=== PATIENT | male | born 2005 | race Caucasian/White ===

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

== ENCOUNTER 2024-01-24 16:20 | Emergency (ER) | payer BC, SELFPAY ==
[2024-01-24] MEDS ORDERED: IBUPROFEN 400 MG TAB ONE (16:28)
[2024-01-24] MEDS ORDERED: ACETAMINOPHEN 500 MG TAB ONE (16:28)
--- NOTE | 2024-01-24 17:12 | RAD REPORT ---
Exam:Hand Left 3 View CLINICAL HISTORY: Left hand pain FINDINGS: Nondisplaced fracture mid aspect fifth metacarpal. No dislocation
--- NOTE | 2024-01-24 17:35 | ER ---
Nurse's Notes [facility] Name: Harshal Means Age: 18 yrs Sex: Male : 2005 Arrival Date: 01/24/2024 Time: 16:20 Bed 8 Private MD: Diagnosis: Nondisplaced fracture of shaft of fifth metacarpal bone, left hand, initial encounter for closed fracture Presentation: 01/23 16:22 Chief complaint: Patient states: Punched a wall 3 days ago. L hand pain and swelling ll1 since. Abrasion L elbow, no pain there though. Coronavirus screen: Client denies travel out of the [place] in the last 14 days. At this time, the client does not indicate any symptoms associated with coronavirus-19. Ebola Screen: Patient denies travel to an Ebola-affected area in the 21 days before illness onset. Initial Sepsis Screen: Does the patient meet any 2 criteria? No. Patient's initial sepsis screen is negative. Does the patient have a suspected source of infection? No. Patient's initial sepsis screen is negative. Risk Assessment: Do you want to hurt yourself or someone else? Patient reports no desire to harm self or others. Onset of symptoms was January 22, 2024. 16:22 Method Of Arrival: Ambulatory 1 16:22 [facility] 16:22 Acuity: CEE 4 ll1 Triage Assessment: 16:25 General: Appears uncomfortable, Behavior is calm, cooperative, appropriate for age. ll1 Pain: Complains of pain in left hand Quality of pain is described as aching. Musculoskeletal: Circulation, motion, and sensation intact. Capillary refill < 3 seconds, in left fingers. Swelling present in left hand Reports pain in left hand. Injury Description: Bruise. Historical: - Allergies: 16:22 No Known Allergies; ll1 - PMHx: 16:22 None; ll1 - PSHx: 16:22 femur FX repair; ll1 - Immunization history:: Adult Immunizations up to date. - Infectious Disease History:: Denies. - Social history:: Smoking status: Patient reports the use of cigarette tobacco products, denies chronic smoking, but will smoke occasionally, Reported history of juuling and/or vaping. Screenin:34 [facility] ED Fall Risk Assessment (Adult) History of falling in the last 3 months, ll1 including since admission No falls in past 3 months (0 pts) Confusion or Disorientation No (0 pts) Intoxicated or Sedated No (0 pts) Impaired Gait No (0 pts) Mobility Assist Device Used No (0 pt) Altered Elimination No (0 pt) Score/Fall Risk Level 0 - 2 = Low Risk Maintained a safe environment, Hourly rounding (assess needs \T\ fall precautionary measures) done. Abuse screen: Denies threats or abuse. Nutritional screening: No deficits noted. Tuberculosis screening: No symptoms or risk factors identified. Assessment: 16:34 Reassessment: No changes from previously documented assessment. Patient and/or family ll1 updated on plan of care and expected duration. Pain level reassessed. Patient is alert, oriented x 3, equal unlabored respirations, skin warm/dry/pink. 17:32 Musculoskeletal: Circulation, motion, and sensation intact. Capillary refill < 3 ll1 seconds, in left fingers. 17:43 Reassessment: No changes from previously documented assessment. Patient and/or family ll1 updated on plan of care and expected duration. Pain level reassessed. Patient is alert, oriented x 3, equal unlabored respirations, skin warm/dry/pink. Vital Signs: 16:22 BP 140 / 96; Pulse 72; Resp 16; Pulse Ox 100% ; Weight 56.7 kg; Height 5 ft. 5 in. ; ll1 Pain 10/10; 16:34 Temp 98(TE); ll1 17:42 BP 150 / 73; Pulse 86; Resp 16; Pulse Ox 99% ; Pain 6/10; ll1 16:22 Body Mass Index 20.80 (56.70 kg, 165.1 cm) - Percentile 20.6 % ll1 16:22 Pain Scale: Adult ll1 17:42 Pain Scale: Adult ll1 ED Course: 16:21 Patient arrived in ED. ll1 16:22 Andrew Fall FNP-C [facility] 16:22 Rajesh Perry MD is Attending Physician. dr5 16:22 Arm band placed on Patient placed in an exam room, on a stretcher. ll1 16:25 Triage completed. ll1 16:26 Kristina Valdes RN is Primary Nurse. ll1 16:35 Patient has correct armband on for positive identification. Provided Education on: ER ll1 procedures and process. 16:35 No provider procedures requiring assistance completed. Patient did not have IV access ll1 during this emergency room visit. 17:06 Hand Left 3 View XRAY In Process Unspecified. EDMS 17:31 Orthoglass splint: Ulnar gutter/Boxer splint applied on left forearm. ll1 Administered Medications: 16:34 Drug: Ibuprofen PO 800 mg PO once {Note: pain 10/10.} Route: PO; ll1 17:31 Follow up: Response: No adverse reaction; Pain is decreased ll1 16:34 Drug: Acetaminophen PO 1000 mg PO once Route: PO; ll1 17:31 Follow up: Response: No adverse reaction; Pain is decreased ll1 Medication: 16:35 VIS not applicable for this client. ll1 Outcome: 17:34 Discharge ordered by . dr5 17:43 Discharged to Law Enforcement ll1 17:43 Condition: stable 17:43 Discharge instructions given to patient, police, Instructed on discharge instructions, follow up and referral plans. Demonstrated understanding of instructions, follow-up care, splint care, 17:44 Patient left the ED. ll1 Signatures: Dispatcher [employer] Kristina Street, RN RN ll1 Andrew Fall, PATENT CHEMIST-C PATENT CHEMIST-Cdr5
--- NOTE | 2024-01-24 17:35 | EDPHYS ---
Physician Documentation [facility] Name: Harshal Means Age: 18 yrs Sex: Male : 2005 Arrival Date: 01/24/2024 Time: 16:20 Bed 8 Private MD: ED Physician Rajesh Perry HPI: 01/23 17:03 This 18 yrs old Male presents to ER via Law Enforcement with complaints of dr5 Hand Injury. 17:03 The patient or guardian reports deformity, injury. The complaints affect the left hand dr5 diffusely, dorsum of left hand. Onset: The symptoms/episode began/occurred 3 day(s) ago. Patient is a 18-year-old male with no past medical history coming in with left hand pain, swelling that occurred after punching a wall 3 days ago. Patient states that he pulled on his hand after the injury that improved his pain. Patient denies numbness or tingling to hand. Patient reports that the pain is located in his left fifth metacarpal and radiates to the left wrist. Historical: - Allergies: 16:22 No Known Allergies; ll1 - PMHx: 16:22 None; ll1 - PSHx: 16:22 femur FX repair; ll1 - Immunization history:: Adult Immunizations up to date. - Infectious Disease History:: Denies. - Social history:: Smoking status: Patient reports the use of cigarette tobacco products, denies chronic smoking, but will smoke occasionally, Reported history of juuling and/or vaping. ROS: 17:03 Constitutional: as per hpi dr5 Exam: 17:03 Constitutional: This is a well developed, well nourished patient who is awake, alert, dr5 and in no acute distress. Head/Face: Normocephalic, atraumatic. Eyes: Pupils equal round and reactive to light, extra-ocular motions intact. Lids and lashes normal. Conjunctiva and sclera are non-icteric and not injected. Cornea within normal limits. Periorbital areas with no swelling, redness, or edema. Neck: Trachea midline, no thyromegaly or masses palpated, and no cervical lymphadenopathy. Supple, full range of motion without nuchal rigidity, or vertebral point tenderness. No Meningismus. Chest/axilla: Normal chest wall appearance and motion. Nontender with no deformity. No lesions are appreciated. Cardiovascular: Regular rate and rhythm with a normal S1 and S2. Normal PMI, no JVD. No pulse deficits. Respiratory: Lungs have equal breath sounds bilaterally, clear to auscultation. No rales, rhonchi or wheezes noted. No increased work of breathing, no retractions or nasal flaring. Back: No spinal tenderness. No costovertebral tenderness. Full range of motion. 17:03 Musculoskeletal/extremity: Extremities: all appear grossly normal, with no appreciated pain with palpation, grossly normal except: noted in the dorsum of left hand: swelling, tenderness, ROM: no acute changes, intact in all extremities, Circulation is intact in all extremities. Pulses: are normal with no appreciated deficits, Sensation intact. Compartment Syndrome exam of affected extremity: is normal. Vital Signs: 16:22 BP 140 / 96; Pulse 72; Resp 16; Pulse Ox 100% ; Weight 56.7 kg; Height 5 ft. 5 in. ; ll1 Pain 10/10; 16:34 Temp 98(TE); ll1 17:42 BP 150 / 73; Pulse 86; Resp 16; Pulse Ox 99% ; Pain 6/10; ll1 16:22 Body Mass Index 20.80 (56.70 kg, 165.1 cm) - Percentile 20.6 % ll1 16:22 Pain Scale: Adult ll1 17:42 Pain Scale: Adult ll1 MDM: 16:22 Medical Screening Exam initiated dr5 17:38 Differential diagnosis: dislocation, open fracture, closed fracture, contusion. Data dr5 reviewed: vital signs, nurses notes, radiologic studies, plain films. I considered the following discharge prescriptions or medication management in the emergency department Medications were administered in the Emergency Department. See MAR. Historians other than the Patient: Law enforcement: Law Enforcement at Bedside. Care significantly affected by the following Social Determinants of Health: Poor access to healthcare and/or lack of insurance, Poor access to transportation, Problems related to employment. Counseling: I had a detailed discussion with the patient and/or guardian regarding the historical points, exam findings, and any diagnostic results supporting the discharge/admit diagnosis, the presence of at least one elevated blood pressure reading (>120/80) during this emergency department visit, radiology results, the need for outpatient follow up, for definitive care, a family practitioner, a orthopedic surgeon, to return to the emergency department if symptoms worsen or persist or if there are any questions or concerns that arise at home. ED course: Nondisplaced fifth metacarpal fracture noted on x-ray. Ibuprofen and Tylenol given in ER. Ulnar gutter splint applied. Recommended patient see orthopedic on Sunday for further management. Filled out work release form since patient will be in senior living to allow patient to see orthopedic in clinic on Sunday. All questions answered.. 01/23 16:25 Order name: Hand Left 3 View XRAY; Complete Time: 17:14 dr5 01/23 17:08 Order name: Ulnar Gutter splint; Complete Time: 17:31 dr5 Administered Medications: 16:34 Drug: Ibuprofen PO 800 mg PO once {Note: pain 11/14.} Route: PO; ll1 17:31 Follow up: Response: No adverse reaction; Pain is decreased ll1 16:34 Drug: Acetaminophen PO 1000 mg PO once Route: PO; ll1 17:31 Follow up: Response: No adverse reaction; Pain is decreased ll1 Disposition Summary: 01/24/24 17:34 Discharge Ordered Notes: Location: Home dr5 Condition: Stable dr5 Diagnosis - Nondisplaced fracture of shaft of fifth metacarpal bone, left hand, initial dr5 encounter for closed fracture Followup: dr5 - With: Emergency Department - When: As needed - Reason: Worsening of condition Followup: dr5 - With: Private Physician - When: 1 - 2 days - Reason: Recheck today's complaints, Continuance of care, Re-evaluation by your physician Discharge Instructions: - Discharge Summary Sheet dr5 - Metacarpal Fracture dr5 Forms: - Work release form dr5 - Medication Reconciliation Form dr5 - Antibiotic Education dr5 - Prescription Opioid Use dr5 - Patient Portal Instructions dr5 - Leadership Thank You Letter dr5 Addendum: 01/29/2024 12:59 I was immediately available for consultation during this patient's visit. I did not e c2 personally see the patient or discuss the patient with the DEIDRA. . Signatures: Dispatcher [employer] Kristina Street RN RN ll1 Rajesh Perry MD MD ec2 Andrew Fall, DRIER ATTENDANT-C DRIER ATTENDANT-Cdr5
[2024-01-24 17:49] VITALS: TEMP 98
[2024-01-24 17:51] VITALS: BP 150/73; O2SAT 99
== END 2024-01-24 17:44 | disposition home or self-care (01) ==
LOC: ER 16:20
DX: S62.357A Nondisplaced fracture of shaft of fifth metacarpal bone, left hand, initial encounter for closed fracture (principal); W22.8XXA Striking against or struck by other objects, initial encounter; Y93.9 Activity, unspecified; Y92.9 Unspecified place or not applicable; F17.210 Nicotine dependence, cigarettes, uncomplicated
CPT/HCPCS: 99283